=== PATIENT | female | born 1945 | race Two or more races ===

== ENCOUNTER 2016-06-10 12:48 | Inpatient (IN) | payer MEDICARE, MEDICAID ==
--- NOTE | 2016-06-10 13:18 | ED Physician Chart ---
Chief Complaint/HPI - Patient Information Date Seen:: 06/10/16 Time Seen:: 13:00 Chief Complaint:: chest pain History of Present Illness:: patient has had non-pleuritic left superior chest pain and left posterior shoulder pain intermittently for two weeks. No recent cough. Pain increased by turning to her left. Pain radiates down left arm to wrist. Denies diaphoresis or SOB. Allergies:: Allergies Allergy/AdvReac Type Severity Reaction Status Date / Time No Known Allergies Allergy Verified 06/10/16 13:01 Vitals:: Vital Signs - 8 hr 06/10/16 12:55 Temp 99 F HR 52 RR 16 O2 Sat % 98 Historian:: Patient Review:: Nurse's Note Reviewed Review of Systems - Review of Systems General/Constitutional: No fever, No chills Skin: No skin lesions Head: No headache Eyes: No loss of vision ENT: No earache, No sore throat Neck: No neck pain Cardio Vascular: Chest pain Pulmonary: No SOB, No cough GI: No nausea, No vomiting, No diarrhea G/U: No dysuria, No hematuria, No nacturia Musculoskeletal: Bone or joint pain Endocrine: No polyuria Psychiatric: No prior psych history Hematopoietic: No bruising Allergic/Immuno: No urticaria Neurological: No syncope Past Medical History - Past Medical History Past Medical History: HTN, DM, Thyroid disorder, Other (hypothyroidism) Family History: Heart disease, Diabetes Melitus, HTN Social History: Non Smoker, No Alcohol Surgical History: other (partial gastrectomy for ca) Psychiatricy History: None Medication: Reviewed Family Medical History - Family Member Mother History Unknown: Yes Labs/Radiology/EKG Results - Lab Results Comments:: Laboratory Results - last 24 hr 06/10/16 06/10/16 06/10/16 13:10 13:16 13:16 WBC 6.1 RBC 3.72 L Hgb 11.2 L Hct 33.7 L MCV 90.7 MCH 30.0 MCHC Differential 33.1 RDW 13.3 Plt Count 146 L MPV 9.5 Neutrophils % 62.6 Lymphocytes % 26.5 Monocytes % 6.8 Eosinophils % 3.8 Basophils % 0.3 Sodium 138 Potassium 3.7 Chloride 108 H Carbon Dioxide 23.6 Anion Gap 10.1 BUN 13 Creatinine 0.7 Est GFR ( Amer) TNP Est GFR (Non-Af Amer) TNP BUN/Creatinine Ratio 18.6 Glucose 195 H Hemoglobin A1c % 6.1 H Calcium 8.8 Magnesium 1.5 L Troponin I B-Natriuretic Peptide 06/10/16 13:16 WBC RBC Hgb Hct MCV MCH MCHC Differential RDW Plt Count MPV Neutrophils % Lymphocytes % Monocytes % Eosinophils % Basophils % Sodium Potassium Chloride Carbon Dioxide Anion Gap BUN Creatinine Est GFR ( Amer) Est GFR (Non-Af Amer) BUN/Creatinine Ratio Glucose Hemoglobin A1c % Calcium Magnesium Troponin I 0.01 B-Natriuretic Peptide 44.8 - EKG Interpretations Rhythm: NSR [place]: normal Rate: 52 Comments:: T wave changes ED Septic Shock - . Is Septic Shock (SBP<90, OR Lactate>4 mmol\L) present?: No - <6hrs of presentation: Vital Signs: Vital Signs - 8 hr 06/10/16 12:55 Temp 99 F HR 52 RR 16 O2 Sat % 98 Reassessment (Disposition) - Reassessment Reassessment:: patient's chest pain does not appear to be cardiac in etiology but patient has risk factors for CAD (diabetes, hypertension, elderly) so better to admit - Diagnosis Diagnosis:: Chest pain; diabetes; anemia; hypomagnesemia - Patient Disposition Admitted to:: Telemetry Spoke to:: Richie Chapman Admitting Medical Physician:: Richie Chapman Condition at Disposition:: Stable, Unchanged
[2016-06-10 13:26] LABS: % BASOPHILS 0.3 % (0.0-2.0); % EOSINOPHILS 3.8 % (0.0-5.0); % LYMPHOCYTES 26.5 % (20.0-50.0); % MONOCYTES 6.8 % (2.0-10.0); % NEUTROPHILS 62.6 % (40.0-80.0); HEMATOCRIT 33.7 % (35.0-45.0); HEMOGLOBIN 11.2 gm/dL (11.7-16.1); MEAN CELL VOLUME 90.7 fl (81-100); MEAN CORPUSCULAR HGB CONC 33.1 pg (28.0-36.0); MEAN PLATELET VOLUME 9.5 fl; NEUTROPHILE ABSOLUTE 3.9 Th/cmm (1.8-8.0); PLATELET COUNT 146 Th/cmm (150-400); RED BLOOD COUNT 3.72 Mil/cmm (3.80-5.20); RED CELL DISTRIBUTION WIDTH 13.3 % (11.5-20.0); WHITE BLOOD COUNT 6.1 Th/cmm (4.8-10.8)
[2016-06-10 13:39] LABS: ANION GAP 10.1 (7.0-16.0); BUN - UREA NITROGEN 13 mg/dL (7-25); BUN/CREATININE RATIO 18.6; CALCIUM SERUM 8.8 mg/dL (8.6-10.3); CARBON DIOXIDE 23.6 mEq/L (21.0-31.0); CHLORIDE 108 mEq/L (98-107); CREATININE - SERUM 0.7 mg/dL (0.6-1.2); GLUCOSE 195 mg/dL (70-105); MAGNESIUM 1.5 mg/dL (1.9-2.7); POTASSIUM SERUM 3.7 mEq/L (3.5-5.1); SODIUM SERUM 138 mEq/L (136-145)
[2016-06-10 13:42] LABS: TROP I 0.01 ng/mL (0.01-0.05)
[2016-06-10 13:53] LABS: BNP 44.8 pg/mL (5.0-100.0)
--- NOTE | 2016-06-10 15:40 | Diagnostic Imaging Report ---
Portable chest x-ray HISTORY: Pain The heart is enlarged. No focal pulmonary processes. No hilar or mediastinal abnormalities. IMPRESSION: 1. No acute pulmonary processes 2. Cardiomegaly
--- NOTE | 2016-06-10 17:10 | Admit Criteria Form ---
Admit Criteria Forms - Admit Criteria Diagnosis: CARDIOLOGY GRG Clinical Indications for Admission to Inpatient Care ( Place 'X' for any and all applicable criteria): Hospital admission is needed for appropriate care of the patient because of ANY ONE of the following (1): [ ] I. Hemodynamic instability as indicated by ALL of the following (1)(2)(3) (4)(5) [ ]a) Vital signs or other findings not as expected for chronic patient condition or baseline [ ]b) Instability indicated by ANY ONE of the following: [ ]i) Hypotension [ ]ii) Symptomatic Tachycardia unresponsive to treatment ( e.g., analgesia, fluids, sedation as indicated) [ ]iii) Inadequate perfusion indicated by ANY ONE of the following: [ ] 1) Lactic acidosis (> 2 mmol/L) [ ] 2) New abnormal capillary refill (> 3 seconds) [ ] 3) Reduced urine output [ ] 4) New altered mental status [ ]iv) Orthostatic vital sign changes unresponsive to treatment (e.g., fluids) [ ]v) IV inotropic or vasopressor medication required to maintain adequate blood pressure or perfusion [ ] II. Severe heart failure as indicated by ANY ONE of the following(17)(18) [ ]a) Respiratory distress [ ]b) Hypotension [ ]c) Anasarca (refractory to outpatient therapy) [ ]d) Cardiac arrhythmias of immediate concern [ ]e) Myocardial ischemia [ ] III. Cardiac arrhythmias or findings of immediate concern indicated by ANY ONE of the following (19)(20): [ ] a) Heart rhythms that are inherently dangerous or unstable indicated by ANY ONE of the following (21)(22)(23): [ ] i) Resuscitated ventricular fibrillation or cardiac arrest [ ] ii) Ventricular escape rhythm [ ] iii) Sustained ventricular tachycardia (30 seconds or more of ventricular rhythm at greater than 100 beats per minute) [ ] iv) Nonsustained ventricular tachycardia and ANY ONE of the following: [ ] 1) Suspected cardiac ischemia as cause or consequence of ventricular tachycardia [ ] 2) In setting of acute myocarditis [ ] b) Unstable cardiac conduction defects indicated by ANY ONE of the following(23)(24)(25) [ ] i) Type II second-degree atrioventricular block [ ]ii) Third-degree atrioventricular block [ ]iii) New-onset left bundle branch block with suspected myocardial ischemia [ ]c) Any heart rhythm and ANY ONE of the following (21)(22)(26)(27) (28) [ ] i) Continuous long-term ECG monitoring needed (e.g., initiation of drug requiring monitoring for more than 24 hours) [ ] ii) Patient has automatic implanted cardioverter defibrillator that is repeatedly firing, malfunctioning, or in need of immediate adjustment of settings beyond the scope of ambulatory or observation care [ ]d) Heart rhythms of concern due to ANY ONE of the following: [ ] i) Hypotension [ ] ii) Respiratory distress [ ] iii) Association with other significant symptoms (e.g., bradycardia with syncope or ongoing dizziness, supraventricular tachycardia with chest pain (14)(15)(17) [ ] IV. Monitoring for cardiac contusion beyond the scope of observation care needed [A](30)(31)(32) [ ] V. Surgical or device complication (e.g., valve replacement complication , pacemaker dysfunction) (35)(41)(44)(45)(46) [ ] . Inpatient palliative care needed. [B](49) Also use Inpatient Palliative Care Criteria [ ] VII. Nonbacterial thrombotic (marantic) endocarditis (36)(43)(47)(48) [X] VIII. Cardiology condition, symptom, or finding for which emergency and observation care has failed or are not considered appropriate. [ ] IX. Acute valvular disease requiring inpatient as indicated by ANY ONE of the following (41) [ ]a) Acute valvular regurgitation (42) [ ]b) Noninfectious valvulitis (43) [ ]c) Obstructive valve thrombosis [ ]d) Paravalvular leak [ ]e) Other significant valvular disorder remaining after emergency or observation level of care (as appropriate) [ ]X. Pericardial disease requiring inpatient treatment as indicated by ANY ONE of the following (33)(34)(35)(36)(37) [ ]a) Suspected tamponade (38)(39)(40) [ ]b) Hemopericardium [ ]c) Other significant pericardial disorder remaining after emergency or observation level of care (as appropriate) [ ] XI. Cardiac ischemia beyond scope of emergency and observation care. [ ] XII. Hypertension requiring inpatient treatment as indicated by ANY ONE of the following (6)(7)(8) [ ]a) SBP greater than 220 mm Hg or DBP greater than 120 mmHg despite treatment [ ]b) SBP greater than 140 mm Hg or DBP greater than 100 mm Hg with evidence of acute end organ damage as indicated by ANY ONE of the following [ ] i) Altered mental status [ ] ii) Acute renal failure as indicated by new onset of ANY ONE of the following (9)(10)(11)(12)(13) [ ]1) 3-fold rise in serum creatinine from baseline [ ]2) Serum creatinine greater than 4 mg/dL ( 354 micromoles/L) with acute rise greater than 0.5 mg/dL (44.2 micromoles/L) [ ]3) Reduction of more than 75% in estimated glomerular filtration rate from baseline [ ]4) Estimated glomerular filtration rate less than 35 mL/min/1.73m2 (0.59 mL/sec/1.73m2) in child up to 18 years of age [ ]5) Cessation of urine output indicated by ALL of the following [ ]A. Adequate volume status [ ]B. Inadequate urine output as indicated by ANY ONE of the following [ ]a. Urine output less than 0.3 mL/kg/hr for 24 hours [ ]b. Anuria (urine output less than 0.1 mL/kg/hr) for 12 hours [ ] iii) Aortic dissection [ ] iv) Myocardial Ischemia [ ] v) Left ventricular heart failure [ ]vi) Retinal Hemorrhage [ ]vii) Other significant finding [ ]c) Hypertension in child requiring inpatient treatment as indicated by ALL of the following(14)(15)(16) [ ] i) Outpatient treatment not effective, not available , or not appropriate [ ]ii) SBP or DBP greater than 95th percentile for age [ ]iii) Evidence of acute end organ damage as indicated by ANY ONE of the following [ ]1) Altered mental status [ ]2) Acute renal failure as indicated by new onset of ANY ONE of the following(9)(10)(11)(12)(13) [ ]A. 3-fold rise in serum creatinine from baseline [ ]B. Serum creatinine greater than 4 mg/dL (354 micromoles/L) with acute rise greater than 0.5 mg/dL (44.2 micromoles/L) [ ]C. Reduction of more than 75% in estimated glomerular filtration rate from baseline [ ]D. Estimated glomerular filtration rate less than 35 mL/min/1.73m2 (0.59 mL/sec/1.73m2) in child up to 18 years of age [ ]E. Cessation of urine output indicated by ALL of the following [ ]a. Adequate volume status [ ]b. Inadequate urine output as indicated by ANY ONE of the following [ ]i) Urine output less than 0.3 mL/kg/hr for 24 hours [ ]ii) Anuria ( urine output less than 0.1 mL/kg/hr) for 12 hours [ ]3) Severe headache [ ]4) Visual disturbance [ ]5) Retinal hemorrhage [ ]6) Other significant finding [ ]XIII. Complications of transplanted heart indicated by ANY ONE of the following(61): [ ]a) Acute graft rejection requiring inpatient management (eg, intravenous immunosuppression)(62)(63) [ ]b) Acute graft heart failure indicated by ANY ONE of the following(64): [ ]i) Hemodynamic instability [ ]ii) Cardiac arrhythmias of immediate concern [ ]iii) Pulmonary edema that is very severe (eg, mechanical ventilation needed, imminent or likely, need for 100% oxygen to keep oxygen saturation above 90%) [ ]iv) Pulmonary edema that is persistent as indicated by ALL of the following: [ ]1) New need for oxygen therapy to keep oxygen saturation above 90% (or increased FiO2 need from baseline) [ ]2) Has not improved sufficiently with emergency department or observation care IV diuretics or other heart failure treatments[E] [ ]v) Altered mental status that is severe or persistent [ ]vi) Increased creatinine (new on laboratory test) with reduction of more than 50% in estimated glomerular filtration rate from baseline [ ]vii) Progressively (ongoing) rising creatinine (known from past laboratory test) with reduction of more than 25% in estimated glomerular filtration rate from baseline [ ]viii) Acute renal failure [ ]ix) Acute peripheral ischemia (eg, examination shows pulseless, cool, mottled, or cyanotic extremity) [ ]x) Pulmonary artery catheter monitoring needed [ ]xi) Other sign or symptom of heart failure requiring inpatient treatment (ie, too severe or not responsive to outpatient and observation care treatment) [ ]c) Infection requiring inpatient management (eg, Hemodynamic instability, need for intravenous antimicrobial treatment)(66)(67)(68)(69)(70) [ ]d) Cardiac allograft vasculopathy requiring inpatient management ( eg evidence of cardiac ischemia)(71) [ ]e) Other complication of transplanted heart (eg, stroke, severe pulmonary hypertension, severe valvular dysfunction) requiring inpatient management(72) The original [facility] [employer] content created by [facility] [employer] has been revised. The portions of the content which have been revised are identified through the use of italic text or in bold, and [facility] has neither reviewed nor approved the modified material. All other unmodified content is copyright [facility] [employer]. Please see references footnoted in the original [facility] [employer] edition 2016 Admit Criteria Met?: Yes
[2016-06-10 19:33] LABS: URINE BILIRUBIN NEGATIVE (NEGATIVE); URINE BLOOD NEGATIVE (NEGATIVE); URINE COLOR YELLOW; URINE GLUCOSE (UA) NEGATIVE (NEGATIVE); URINE KETONE NEGATIVE (NEGATIVE); URINE PH 6.5; URINE PROTEIN NEGATIVE (NEGATIVE); URINE UROBILINOGEN 0.2 E.U./dL (0.2 - 1.0)
[2016-06-10 19:34] LABS: URINE BACTERIA MANY /hpf (NONE SEEN); URINE EPITHELIAL CELLS FEW /lpf (FEW); URINE RBC NONE SEEN /hpf (0-5); URINE WBC 25-50 /hpf (0-5)
[2016-06-10] MEDS ORDERED: cefTRIAXone 1 GM in Sodium Chloride 0.9% 50 ML IV ONE (19:46)
[2016-06-10 22:06] VITALS: BP 148/71
[2016-06-10] MEDS: Diphenoxylate/Atropine 2.5mg Tab PO SCH (23:39)
[2016-06-10] MEDS: Insulin Detemir 100 units/mL 10mL Vial SUBQ SCH (23:40)
[2016-06-11 07:57] LABS: CHOLESTEROL 128 mg/dL (<200); TRIGLYCERIDES 102 mg/dL (<150)
[2016-06-11] MEDS: Diphenoxylate/Atropine 2.5mg Tab PO SCH ×2 (09:06→13:38)
--- NOTE | 2016-06-11 09:06 | Diagnostic Imaging Report ---
Left shoulder 2 views Indication: pain Comparison: none Findings: Moderate to advanced AC joint degenerative changes are noted. Mild glenohumeral joint degenerative changes are noted. No evidence of an acute fracture or dislocation. No significant focal soft tissue swelling. Impression: No evidence of an acute fracture. Degenerative changes, moderate to advanced at the AC joint. In the setting of trauma, if clinical symptoms persist and there is continued concern for an occult fracture, follow up exams in 5-7 days is suggested.
[2016-06-11] MEDS: Levothyroxine 0.05 Mg Tab PO SCH (09:07)
--- NOTE | 2016-06-11 11:20 | History & Physical ---
CHIEF COMPLAINT: Left-sided chest pain. HISTORY OF PRESENT ILLNESS: This is a 71-year-old lady, resident of a [facility], who was brought into the ER with a 2-week history of persistent worsening left anterior chest wall pain/shoulder pain with radiation to the left arm. The patient denies any previous similar episodes. She has a history significant for diabetes, hypertension, hypothyroidism and hyperlipidemia. She also relates a strong family history of cardiac disease on her mom side with multiple members of family having had cardiac issues, but reports no early . As mentioned above, the pain is left sided and radiates to the left arm and shoulder area. It is not associated with shortness of breath, palpitations or diaphoresis. The pain seems to worsen at times with arm movement. PERTINENT FINDINGS ON ADMISSION: Include negative troponins and EKG showing sinus rhythm at a rate of 50 but with no wave abnormalities. PAST MEDICAL HISTORY: As noted above. PAST SURGICAL HISTORY: She had a partial cholecystectomy for cancer sometime ago. FAMILY HISTORY: As noted above, cardiac disease, diabetes and also hypertension. SOCIAL HISTORY: No tobacco, ETOH or illicit drug usage. Lives at a [facility]. ALLERGIES: NKDA. OUTPATIENT MEDICATIONS: She is on insulin sliding scale, vitamin B12 injection once a month 1000 mcg, vitamin D 50,000 units q. week, Prozac 20 mg every day, gabapentin 200 mg every day, Levemir 10 units at bedtime, levothyroxine 50 mcg daily, lisinopril 10 mg every day, Imodium 2 mg every day p.r.n. for GI upset, Glucophage 1000 mg b.i.d., metoprolol 25 b.i.d., Topamax 25 b.i.d., amlodipine 5 at bedtime, Atarax 25mg q. 8 hours p.r.n. for pruritus. REVIEW OF SYSTEMS: CONSTITUTIONAL: She denies any fever, chills, any recent weight loss. CARDIOVASCULAR: Please refer to the HPI. PULMONARY: No cough, no shortness of breath. No secretions. GASTROINTESTINAL: No bowel habit changes. GENITOURINARY: No bladder habit changes including no dysuria or hematuria. NEUROLOGIC: No change in vision. No syncope. No headaches. PHYSICAL EXAMINATION: VITAL SIGNS: Temperature 97.6, pulse 47-67, blood pressure 151/66, respirations 18, satting 96% on room air. GENERAL: Well-developed, thin female, currently awake, alert and oriented x 3. She is sitting up in bed, answering questions appropriately. HEAD AND NECK: Normocephalic, atraumatic. Pupils reactive to light. Extraocular movements are intact. HEART: Regular rate and rhythm with no audible murmurs. S1 and S2 present. CHEST WALL: There was no listed chest pain upon deep palpation on the left chest wall and on the left shoulder area. LUNGS: Clear to auscultation bilaterally. ABDOMEN: Soft, supple, nontender, nondistended, normoactive bowel sounds. EXTREMITIES: There is no edema in lower extremities. NEUROLOGIC: Grossly intact and nonfocal. LABORATORY DATA: White count 6.1, H and H 11 and 33, platelet count of 146. Chemistry was essentially within normal limits. Glucose 195. It was noted a hemoglobin A1c was 6.1, calcium 8.8 and mag 1.5. Troponins are negative x 3 sets. UA shows large leukocyte with 25-50 wbc's. EKG sinus rhythm at a rate of 50, no ST wave abnormalities noted. ASSESSMENT: 1. Chest pain, rule out acute coronary syndrome. The patient has multiple risk factors including a strong family history, diabetes, hypertension and previous history of hypercholesterolemia. Differential also includes musculoskeletal pain given some of her history. 2. Bradycardia. 3. Urinary tract infection. 4. History of diabetes. 5. History of hypertension. 6. History of hypercholesterolemia. PLAN: The patient has been admitted to the telemetry marie where she will continue to be ruled out with cardiac enzymes and EKGs. Followup EKG and a 2D echo have been ordered as well as a Cardiology eval for further management and care. The patient has been placed on aspirin and also has been kept on her other medications schedule. A TSH and a lipid panel will be ordered and the patient also will be placed on IV antibiotics given her UTI. JOB# [id number] ROSEANN
[2016-06-11] MEDS: INSULIN ASPART SLIDING SCALE 100 UNITS/ML UNIT SUBQ SCH ×3 (12:04→21:54)
--- NOTE | 2016-06-11 15:03 | Cardiology ---
Patient of Dr. Chapman M-MODE ECHOCARDIOGRAM: Mitral valve, anterior leaflet of mitral valve shows normal excursion, EF velocity. Posterior leaflet of the mitral valve shows normal excursion. Left ventricular posterior wall shows increased thickness, normal excursion. Interventricular septum shows increased thickness, normal excursion, hypertrophy of the left ventricle, ejection fraction 50%. Left atrium normal. Aortic root shows normal dimension, normal excursion of aortic leaflets. CONCLUSION: Hypertrophy of the left ventricle, ejection fraction 50%. 2D ECHO: Long axis view showed normal sized left ventricle with hypertrophy of the left ventricle. Left atrium normal. Aortic root shows normal dimension, normal excursion of aortic leaflets. Short axis view of mitral valve normal. Short axis view of aortic valve normal. Apical four chamber view showed normal sized left ventricle with hypertrophy of the left ventricle. Left atrium normal. Right ventricular cavity, right atrium normal. No pericardial effusion. CONCLUSION: Hypertrophy of the left ventricle, ejection fraction 50%. Doppler study shows prominent A wave consistent with poor compliance of left ventricle. Trace tricuspid regurgitation. [facility]# [id number]
[2016-06-11] MEDS ORDERED: Diphenoxylate/Atropine 2.5mg Tab PO PRN (15:31)
[2016-06-11] MEDS ORDERED: VTE Chemical Prophylaxis Screen/Admission MC PRN (15:33)
[2016-06-11] MEDS: Insulin Detemir 100 units/mL 10mL Vial SUBQ SCH (21:56)
--- NOTE | 2016-06-11 22:48 | Consultation ---
The patient of Dr. Chapman. HISTORY AND PHYSICAL: This 71-year-old female patient who was brought to the Emergency Room complaining of chest pain in the left side radiating to the left shoulder, sharp in nature. PAST MEDICAL HISTORY: Hypertension, insulin-dependent diabetes mellitus, hyperlipidemia, hypothyroidism, bradycardia. FAMILY HISTORY: Unremarkable. SOCIAL HISTORY: No history of smoking or alcohol abuse. ALLERGIES: No known allergies. PHYSICAL EXAMINATION: VITAL SIGNS: Blood pressure 150/80, pulse 50, respirations 20. HEAD: Normocephalic. No lumps or bumps. EYES: Pupils equal, reactive to light. Fundi show AV nicking, sclerae white, conjunctivae pink. NECK: Carotid 2+. Normal upstroke. JVD flat. Thyroid not palpable. Lymph nodes not palpable. CHEST: Shows increased AP diameter. No kyphosis or scoliosis. LUNGS: Bilateral bronchovesicular breath sounds. HEART: PMI fifth intercostal space with lateral to midclavicular line. S1, S2. No S3, S4. Systolic murmur, grade 2/6, lower left sternal border without radiation. ABDOMEN: Soft. Liver, spleen not palpable. No organomegaly. Bowel sounds active. NEUROLOGIC: Unremarkable. EXTREMITIES: Peripheral pulses 2+. No pedal edema. CLINICAL IMPRESSION: Atypical chest pain; hypertension; hyperlipidemia; hypothyroid; sinus bradycardia, asymptomatic; type 2 insulin dependent diabetes mellitus; diabetic peripheral neuropathy. PLAN: We will continue to monitor the patient and also get echocardiogram. The patient's bradycardia is asymptomatic. JOB# [id number]
[2016-06-12 06:35] LABS: % BASOPHILS 0.7 % (0.0-2.0); % EOSINOPHILS 5.1 % (0.0-5.0); % LYMPHOCYTES 27.2 % (20.0-50.0); % MONOCYTES 8.8 % (2.0-10.0); % NEUTROPHILS 58.2 % (40.0-80.0); HEMATOCRIT 36.3 % (35.0-45.0); HEMOGLOBIN 12.6 gm/dL (11.7-16.1); MEAN CELL VOLUME 89.2 fl (81-100); MEAN CORPUSCULAR HEMOGLOBIN 30.9 pg (27.0-31.0); MEAN CORPUSCULAR HGB CONC 34.7 pg (28.0-36.0); MEAN PLATELET VOLUME 9.4 fl; NEUTROPHILE ABSOLUTE 2.9 Th/cmm (1.8-8.0); PLATELET COUNT 153 Th/cmm (150-400); RED BLOOD COUNT 4.07 Mil/cmm (3.80-5.20); RED CELL DISTRIBUTION WIDTH 13.4 % (11.5-20.0)
[2016-06-12] MEDS: INSULIN ASPART SLIDING SCALE 100 UNITS/ML UNIT SUBQ SCH ×4 (06:35→20:58)
[2016-06-12 06:46] LABS: ANION GAP 6.3 (7.0-16.0); BUN - UREA NITROGEN 14 mg/dL (7-25); BUN/CREATININE RATIO 23.3; CALCIUM SERUM 9.1 mg/dL (8.6-10.3); CARBON DIOXIDE 26.2 mEq/L (21.0-31.0); CHLORIDE 104 mEq/L (98-107); CREATININE - SERUM 0.6 mg/dL (0.6-1.2); GLUCOSE 102 mg/dL (70-105); MAGNESIUM 1.6 mg/dL (1.9-2.7); POTASSIUM SERUM 3.5 mEq/L (3.5-5.1); SODIUM SERUM 133 mEq/L (136-145)
[2016-06-12] MEDS: Levothyroxine 0.05 Mg Tab PO SCH (08:29)
[2016-06-12] MEDS ORDERED: Mag Sulfate 2gm/50mL Premix 2 GM/50 ML BAG IV ONE (14:34)
[2016-06-12] MEDS: Insulin Detemir 100 units/mL 10mL Vial SUBQ SCH (20:57)
[2016-06-13 05:57] LABS: % BASOPHILS 0.9 % (0.0-2.0); % EOSINOPHILS 4.7 % (0.0-5.0); % LYMPHOCYTES 28.7 % (20.0-50.0); % MONOCYTES 8.7 % (2.0-10.0); HEMATOCRIT 36.7 % (35.0-45.0); HEMOGLOBIN 12.5 gm/dL (11.7-16.1); MEAN CELL VOLUME 91.1 fl (81-100); MEAN CORPUSCULAR HEMOGLOBIN 30.9 pg (27.0-31.0); MEAN PLATELET VOLUME 9.2 fl; PLATELET COUNT 144 Th/cmm (150-400); RED BLOOD COUNT 4.03 Mil/cmm (3.80-5.20)
[2016-06-13 06:16] LABS: ANION GAP 8.2 (7.0-16.0); BUN - UREA NITROGEN 15 mg/dL (7-25); BUN/CREATININE RATIO 21.4; CALCIUM SERUM 9.1 mg/dL (8.6-10.3); CARBON DIOXIDE 27.4 mEq/L (21.0-31.0); CHLORIDE 104 mEq/L (98-107); CREATININE - SERUM 0.7 mg/dL (0.6-1.2); GLUCOSE 107 mg/dL (70-105); POTASSIUM SERUM 3.6 mEq/L (3.5-5.1); SODIUM SERUM 136 mEq/L (136-145)
[2016-06-13] MEDS: INSULIN ASPART SLIDING SCALE 100 UNITS/ML UNIT SUBQ SCH ×4 (07:05→20:14)
[2016-06-13] MEDS: Levothyroxine 0.05 Mg Tab PO SCH (08:22)
[2016-06-13] MEDS: Insulin Detemir 100 units/mL 10mL Vial SUBQ SCH (20:14)
[2016-06-14] MEDS: INSULIN ASPART SLIDING SCALE 100 UNITS/ML UNIT SUBQ SCH ×2 (06:44→11:46)
[2016-06-14 07:34] LABS: ANION GAP 5.7 (7.0-16.0); BUN - UREA NITROGEN 16 mg/dL (7-25); BUN/CREATININE RATIO 26.7; CALCIUM SERUM 8.9 mg/dL (8.6-10.3); CARBON DIOXIDE 26.9 mEq/L (21.0-31.0); CHLORIDE 104 mEq/L (98-107); CREATININE - SERUM 0.6 mg/dL (0.6-1.2); GLUCOSE 88 mg/dL (70-105); POTASSIUM SERUM 3.6 mEq/L (3.5-5.1); SODIUM SERUM 133 mEq/L (136-145)
[2016-06-14 07:46] LABS: % BASOPHILS 0.8 % (0.0-2.0); % EOSINOPHILS 5.1 % (0.0-5.0); % LYMPHOCYTES 33.4 % (20.0-50.0); % MONOCYTES 8.8 % (2.0-10.0); % NEUTROPHILS 51.9 % (40.0-80.0); HEMATOCRIT 35.6 % (35.0-45.0); HEMOGLOBIN 12.1 gm/dL (11.7-16.1); MEAN CELL VOLUME 91.9 fl (81-100); MEAN CORPUSCULAR HEMOGLOBIN 31.2 pg (27.0-31.0); MEAN CORPUSCULAR HGB CONC 33.9 pg (28.0-36.0); MEAN PLATELET VOLUME 9.3 fl; NEUTROPHILE ABSOLUTE 2.1 Th/cmm (1.8-8.0); PLATELET COUNT 146 Th/cmm (150-400); RED BLOOD COUNT 3.87 Mil/cmm (3.80-5.20); RED CELL DISTRIBUTION WIDTH 13.2 % (11.5-20.0)
[2016-06-14] MEDS: Levothyroxine 0.05 Mg Tab PO SCH (09:01)
[2016-06-14] MEDS ORDERED: Ciprofloxacin 200mg Premix PB 200 MG/100 ML BAG IV SCH (10:00)
== END 2016-06-14 15:15 | disposition short-term general hospital (02) | DRG 311 ==
LOC: ER 12:48 → TELE 16:37
PROVIDERS: ADMIT Internal Medicine; ATTEND Internal Medicine
DX: I20.0 Unstable angina (principal); E11.40 Type 2 diabetes mellitus with diabetic neuropathy, unspecified; R00.1 Bradycardia, unspecified; N39.0 Urinary tract infection, site not specified; E83.42 Hypomagnesemia; I10 Essential (primary) hypertension; D64.9 Anemia, unspecified; E78.5 Hyperlipidemia, unspecified; E03.9 Hypothyroidism, unspecified; M19.90 Unspecified osteoarthritis, unspecified site; Z83.3 Family history of diabetes mellitus; Z82.49 Family history of ischemic heart disease and other diseases of the circulatory system; Z79.4 Long term (current) use of insulin
CPT/HCPCS: 36415-UA; 71010-TC; 73030-TC-LT; 7610; 80048-TC; 80061-TC; 81001-TC; 82550-TC; 82948-90; 83036-90; 83735-TC; 83880-TC; 84443-TC; 84484-TC; 85025-TC; 86141-TC; 87086-90; 93005; 93307-TC; J0696; J0744; J1644; J1815; J3420; J3475